=== PATIENT | male | born 1965 | race Caucasian/White ===

== ENCOUNTER 2017-01-25 18:46 | Emergency (ER) | payer BC ==
[~2017-01-25] VITALS: Ht 177.8 cm; Wt 103.0 kg
[2017-01-25 18:51] VITALS: TEMP 36.6; Ht 177.8 cm; Wt 103.0 kg
[2017-01-25 19:20] VITALS: O2SAT 98
[2017-01-25] MEDS ORDERED: ASPIRIN 81 MG CHEW PO STA (19:23)
[2017-01-25 19:29] LABS: BASO % 0.4 %; BASO ABS # 0.03 K/uL (0-0.2); COMPLETE YES; EOS % 1.8 %; HEMATOCRIT 44.4 % (42-52); IG% 0.3 %; LYMPH % 22.1 %; LYMPH ABS # 1.72 K/uL (1.2-3.4); MEAN CELL VOLUME 85.4 fL (80-100); MEAN CORPUSCULAR HEMOGLOBIN 30.2 pg (25-34); MEAN CORPUSCULAR HGB CONC 35.4 g/dl (32-36); MEAN PLATELET VOLUME 11.1 fL (7.4-10.4); MONO % 8.9 %; NEUT % 66.5 %; PLATELET COUNT 204 K/uL (130-400); WHITE BLOOD COUNT 7.78 K/uL (4.8-10.8)
[2017-01-25] MEDS ORDERED: NITROGLYCERIN 0.4 MG SL PER TAB CHARGE SL PRN (19:30)
[2017-01-25 19:38] LABS: PROTHROMBIN TIME (PATIENT) 10.4 SECONDS (9.0-12.0)
--- NOTE | 2017-01-25 19:43 | DIAGNOSTIC IMAGING REPORT ---
CHEST ONE VIEW PORTABLE CLINICAL HISTORY: Chest pain and tightness. COMPARISON STUDY: No previous studies for comparison. FINDINGS: A dual lead left pacemaker is in place. There is mild cardiomegaly without evidence of pulmonary edema. No pneumothorax or pleural effusion is present. There is no consolidation. IMPRESSION: 1. No acute cardiopulmonary findings. 2. Mild cardiomegaly. Electronically signed by: Familia Matamoros M.D. 01/25/2017 7:42 PM Dictated Date/Time: 01/25/2017 7:41 PM
[2017-01-25] MEDS ORDERED: DVN80 PO (19:49)
[2017-01-25] MEDS ORDERED: ROSU5TAB PO (19:49)
[2017-01-25] MEDS ORDERED: MULT-513 PO (19:49)
[2017-01-25] MEDS ORDERED: ASPI81TA28 PO (19:49)
[2017-01-25 19:57] LABS: ALT/SGPT 40 U/L (12-78); AST/SGOT 15 U/L (15-37); BLOOD UREA NITROGEN 15 mg/dl (7-18); BUN/CREATININE RATIO 12.6 (10-20); CALCIUM 8.9 mg/dl (8.5-10.1); CARBON DIOXIDE 29 mmol/L (21-32); CHLORIDE 108 mmol/L (98-107); GLUCOSE 112 mg/dl (70-99); POTASSIUM 3.8 mmol/L (3.5-5.1); SODIUM 144 mmol/L (136-145)
[2017-01-25 20:03] LABS: ALKALINE PHOSPHATASE 54 U/L (45-117); CKMB/CK RATIO 0.4 (0-3.0)
[2017-01-25] MEDS ORDERED: NITROGLYCERIN OINT 2% 1GM PACKET EXT ONE (21:00)
[2017-01-25 23:12] VITALS: BP 145/106; PULSE 71; O2SAT 95
--- NOTE | 2017-01-26 00:25 | EMERGENCY ROOM VISIT NOTE ---
History Report prepared by Bong: Marilynn Kyle Under the Supervision of: Dr. Elias Oseguera M.D. First contact with patient: 19:06 Chief Complaint: CHEST PAIN Stated Complaint: CHEST PAIN,TIGHTNESS History of Present Illness The patient is a 51 year old male who presents to the Emergency Room with complaints of an episode of chest pain starting this morning. The patient states that the pain was in the middle of his chest and that he could feel it in his back. He reports that he also experienced diaphoresis and lightheadedness. He states that his pain is a 3/10 in severity. The patient reports that he came into the ED because it hadn't gotten any better. He states that he already has a pacemaker in place due to a second degree AV block. He reports that he has a history of high cholesterol, high blood pressure, and Lyme disease. He states the was put on a medicine for his cholesterol and started experiencing muscle pains. 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 He denies a history of diabetes. The patient complains of a sore throat. Pt denies LOC, headache, fevers, chills, diaphoresis, visual changes, neck pain, tearing pain radiating to the back, personal history or family history of aneurysm or pulmonary embolism, uncontrolled hypertension, breathing difficulties, leg swelling, coagulation abnormalities, prolonged travel, recent surgery or immobilization, nausea, vomiting, abdominal pain, melena, hematochezia, urinary symptoms, numbness, weakness, lymphadenopathy, rash, or other complaints. Source of History: patient Onset: this morning Position: chest Symptom Intensity: 3/10 Timing: other (episode) Associated Symptoms: + back pain, + diaphoresis, + sorethroat Note: The patient complains of lightheadedness. Review of Systems See HPI for pertinent positives and negatives. A total of ten systems were reviewed and were otherwise negative. Past Medical & Surgical Medical Problems: (1) Hypercholesteremia (2) Hypertension (3) Lyme carditis (4) Pacemaker (5) Second degree atrioventricular block Social History Smoking Status: Never Smoker Current/Historical Medications Scheduled Aspirin (Aspirin Ec), 81 MG PO DAILY Multivitamins/Minerals (Mvi With Minerals), 1 TAB PO 2XWK Rosuvastatin Calcium (Crestor), 5 MG PO DAILY Valsartan (Diovan), 80 MG PO DAILY Allergies Coded Allergies: No Known Allergies (Unverified , 01/25/17) Physical Exam Vital Signs Date Time Temp Pulse Resp B/P Pulse Ox O2 Delivery O2 Flow Rate FiO2 01/25/17 23:12 71 18 145/106 95 Room Air 01/25/17 21:57 87 18 146/95 97 Room Air 01/25/17 20:04 88 18 140/69 98 Room Air 01/25/17 19:20 98 Room Air 01/25/17 19:12 82 01/25/17 19:10 98 Room Air 01/25/17 18:51 36.6 74 20 188/98 98 Room Air Physical Exam GENERAL: Awake, alert, well-appearing, in no distress HENT: Normocephalic, atraumatic. Oropharynx unremarkable. EYES: Normal conjunctiva. Sclera non-icteric. NECK: Supple. No nuchal rigidity. FROM. No JVD. RESPIRATORY: Clear to auscultation. CARDIAC: Regular rate, normal rhythm. Extremities warm and well perfused. Pulses equal. ABDOMEN: Soft, non-distended. No tenderness to palpation. No rebound or guarding. No masses. RECTAL: Deferred. MUSCULOSKELETAL: Chest examination reveals no tenderness. The back is symmetrical on inspection without obvious abnormality. There is no CVA tenderness to palpation. No joint edema. LOWER EXTREMITIES: Calves are equal size bilaterally and non-tender. No edema. No discoloration. NEURO: Normal sensorium. No sensory or motor deficits noted. SKIN: No rash or jaundice noted. Medical Decision & Procedures ER Provider Diagnostic Interpretation: Radiology results as stated below per my review and radiologist interpretation: CHEST ONE VIEW PORTABLE CLINICAL HISTORY: Chest pain and tightness. COMPARISON STUDY: No previous studies for comparison. FINDINGS: A dual lead left pacemaker is in place. There is mild cardiomegaly without evidence of pulmonary edema. No pneumothorax or pleural effusion is present. There is no consolidation. IMPRESSION: 1. No acute cardiopulmonary findings. 2. Mild cardiomegaly. Electronically signed by: Familia Matamoros M.D. 01/25/2017 7:42 PM Dictated Date/Time: 01/25/2017 7:41 PM Laboratory Results 01/25/17 19:15 Red Blood Count 5.20, Mean Corpuscular Volume 85.4, Mean Corpuscular Hemoglobin 30.2, Mean Corpuscular Hemoglobin Concent 35.4, Mean Platelet Volume 11.1, Neutrophils (%) (Auto) 66.5, Lymphocytes (%) (Auto) 22.1, Monocytes (%) (Auto) 8.9, Eosinophils (%) (Auto) 1.8, Basophils (%) (Auto) 0.4, Neutrophils # (Auto) 5.18, Lymphocytes # (Auto) 1.72, Monocytes # (Auto) 0.69, Eosinophils # (Auto) 0.14, Basophils # (Auto) 0.03 01/25/17 19:15 Test 01/25/17 19:15 White Blood Count 7.78 K/uL (4.8-10.8) Red Blood Count 5.20 M/uL (4.7-6.1) Hemoglobin 15.7 g/dL (14.0-18.0) Hematocrit 44.4 % (42-52) Mean Corpuscular Volume 85.4 fL (80-100) Mean Corpuscular Hemoglobin 30.2 pg (25-34) Mean Corpuscular Hemoglobin Concent 35.4 g/dl (32-36) Platelet Count 204 K/uL (130-400) Mean Platelet Volume 11.1 fL (7.4-10.4) Neutrophils (%) (Auto) 66.5 % Lymphocytes (%) (Auto) 22.1 % Monocytes (%) (Auto) 8.9 % Eosinophils (%) (Auto) 1.8 % Basophils (%) (Auto) 0.4 % Neutrophils # (Auto) 5.18 K/uL (1.4-6.5) Lymphocytes # (Auto) 1.72 K/uL (1.2-3.4) Monocytes # (Auto) 0.69 K/uL (0.11-0.59) Eosinophils # (Auto) 0.14 K/uL (0-0.5) Basophils # (Auto) 0.03 K/uL (0-0.2) RDW Standard Deviation 42.0 fL (36.4-46.3) RDW Coefficient of Variation 13.5 % (11.5-14.5) Immature Granulocyte % (Auto) 0.3 % Immature Granulocyte # (Auto) 0.02 K/uL (0.00-0.02) Prothrombin Time 10.4 SECONDS (9.0-12.0) Prothromb Time International Ratio 1.0 (0.9-1.1) Activated Partial Thromboplast Time 25.2 SECONDS (21.0-31.0) Partial Thromboplastin Ratio 1.0 Anion Gap 7.0 mmol/L (3-11) Est Creatinine Clear Calc Drug Dose 88.5 ml/min Estimated GFR () 81.2 Estimated GFR (Non- 70.1 BUN/Creatinine Ratio 12.6 (10-20) Calcium Level 8.9 mg/dl (8.5-10.1) Total Bilirubin 0.5 mg/dl (0.2-1) Direct Bilirubin 0.1 mg/dl (0-0.2) Aspartate Amino Transf (AST/SGOT) 15 U/L (15-37) Alanine Aminotransferase (ALT/SGPT) 40 U/L (12-78) Alkaline Phosphatase 54 U/L (45-117) Total Creatine Kinase 146 U/L (39-308) Creatine Kinase MB 0.6 ng/ml (0.5-3.6) Creatine Kinase MB Ratio 0.4 (0-3.0) Troponin I < 0.015 ng/ml (0-0.045) Total Protein 7.3 gm/dl (6.4-8.2) Albumin 4.3 gm/dl (3.4-5.0) Lipase 217 U/L (73-393) Laboratory results reviewed by me Medications Administered Medications (Trade) Dose Ordered Sig/Mickey Route Start Time Stop Time Status Last Admin Dose Admin Aspirin (Aspirin Chew) 324 mg NOW STAT PO 01/25/17 19:23 01/25/17 19:25 DC 01/25/17 19:31 324 MG Nitroglycerin (Nitrostat Tab) 0.4 mg Q5M PRN SL 01/25/17 19:30 01/25/17 23:33 DC 01/25/17 19:31 0.4 MG Nitroglycerin (Nitroglycerin 2% Oint) 0.5 inch NOW ONCE EXT 01/25/17 21:00 01/25/17 21:01 DC 01/25/17 21:01 0.5 INCH ECG Indication: chest pain Rate (beats per minute): 77 Rhythm: normal sinus Findings: RBBB, no acute ischemic change, left axis deviation, no ectopy ED Course 1911: The patient was evaluated in room B6. A complete history and physical exam was performed. 1922: Ordered Aspirin Chew 324 mg PO. 1929: Ordered Nitroglycerin 0.4 mg PRN SL chest pain. 2050: I reevaluate the patient and he is feeling better with the Nitroglycerin and is going to get Nitroglycerin Paste. 2051: Discussed the patient's case with Dr. Mensah. The patient will be evaluated for further treatment and disposition. 2099: Ordered Nitroglycerin 0.5 inch EXT. 2240: The patient denied wanting to be admitted to the hospital. 2254: I reevaluated the patient and he is feeling better. He understands all the risks and benefits of leaving AMA. He has been pleased with his treatment and has been provided a copy of his labs an EKG. The patient will be discharged home. Medical Decision Triage Nursing notes reviewed. The patient's presentation and history were concerning for chest pain. Etiologies such as cardiac ischemia, aortic dissection, pulmonary embolism, pneumonia, pneumothorax, musculoskeletal, infections, gastrointestinal, as well as others were entertained. The patient was evaluated. His history was concerning for possible cardiac etiology. He has known coronary disease by his report, his age, his history of hypertension, and his history of high cholesterol are concerning. The ECG was negative for acute ischemic change. His CBC, chemistry panel, LFTs, lipase, and cardiac markers were unremarkable. Chest x-ray was unremarkable. The findings were discussed with the patient at length. I discussed coming into the hospital for further workup given his risk factors. The patient did receive nitroglycerin and aspirin. This did make him feel better. Active paced was applied. Consultation was made with Dr. Orlando Lorenzo of internal medicine. He evaluated the patient. The patient wished to be discharged and follow-up with his doctor back home. He was advised that this was recommended Dr. Orlando Lorenzo or myself. The patient has demonstrated no significant defect in the decision-making capacity to make choices. The encounter had a good level of communication with language the patient can easily understand. I feel trust was present and conveyed that our action/intentions were the best interest of the patient. The patient was given all relevant information and reiterated the explained risks and benefits. The patient explained the reasoning for refusing treatment clearly. The patient possesses and expresses a set of values and goals, the ability to communicate and understand, and an ability to reason and deliberate. Despite acting emphatically, attentively and with the utmost patient's the patient declined further treatment. I offered options, negotiated, and explored every reasonable choice. I must respect the patient's autonomy and that they feel that their choices are best for them despite the associated risks of leaving AGAINST MEDICAL ADVICE. 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 I gave my usual and customary discussion regarding this issue. The chart was completed utilizing [employer] voice recognition software. Grammatical errors, random word insertions, pronoun errors, and incomplete sentences are an occasional consequence of this system due to software limitations, ambient noise, and hardware issues. Any formal questions or concerns about the content, text, or information contained within the body of this dictation should be directly addressed to the physician for clarification. Consults Time Called: 2048 Consulting Physician: Dr. Mensah Returned Call: 2051 Discussed the patient's case with Dr. Mensah. The patient will be evaluated for further treatment and disposition. Impression Primary Impression: Substernal precordial chest pain Scribe Attestation The scribe's documentation has been prepared under my direction and personally reviewed by me in its entirety. I confirm that the note above accurately reflects all work, treatment, procedures, and medical decision making performed by me. Departure Information Dispostion Against Medical Advice Referrals No Doctor, Assigned (PCP) Forms HOME CARE DOCUMENTATION FORM, IMPORTANT VISIT INFORMATION Patient Instructions My [facility] Additional Instructions Chest Pain Instructions: You are leaving against the physician's medical advice. Your evaluation is not complete. The exact cause of your chest pain is not known at this time. Your health could be at significant risk by your actions of leaving before the evaluation was completed. This could result in worsening of your condition, need for further treatment, hospitalization, surgery, or even . Continue current medications. Rest and drink plenty of fluids. You may return at any time, for any reason, but you are encouraged to return immediately if your symptoms worsen or if you change your mind. Follow-up with your nursery supervisor tomorrow morning for a recheck of your current condition.
== END 2017-01-25 23:14 | disposition left against medical advice (07) ==
LOC: C.EDB 18:49
DX: R07.2 Precordial pain (principal); J02.9 Acute pharyngitis, unspecified; R61 Generalized hyperhidrosis; R42 Dizziness and giddiness; M54.9 Dorsalgia, unspecified; I45.10 Unspecified right bundle-branch block; I10 Essential (primary) hypertension; E11.9 Type 2 diabetes mellitus without complications; E78.00 Pure hypercholesterolemia, unspecified; Z79.82 Long term (current) use of aspirin; Z79.899 Other long term (current) drug therapy; Z95.0 Presence of cardiac pacemaker